=== PATIENT | female | born 1965 | race Hispanic/Latino ===

== ENCOUNTER 2022-04-06 08:37 | Emergency (ER) | payer BC ==
[2022-04-06] MEDS ORDERED: Ketorolac Tromethamine 30 MG/ML VIAL ONE (09:44)
[2022-04-06] MEDS ORDERED: Ondansetron PF 4 MG/2 ML Vial ONE (09:44)
[2022-04-06 09:59] LABS: Hemoglobin 9.9 g/dL (12.0-15.5); Mean Corpuscular HGB CONC 30.8 g/dL (32.0-36.0); Mean Corpuscular Hemoglobin 29.7 pg (27.0-33.0); Mean Corpuscular Volume 96.4 fl (81.6-98.3); Mean Platelet Volume 10.8 fl (7.4-10.4); Platelet Count 194 10x3/uL (150-450); RBC Distribution Width 14.9 % (11.5-14.5); Red Blood Cell (RBC) Count 3.33 10x6/uL (3.90-5.03)
[2022-04-06 10:11] LABS: ALT (SGPT) 24 U/L (8-55); AST (SGOT) 59 U/L (5-34); Albumin 3.5 g/dL (3.5-5.0); Alkaline Phosphatase 62 U/L (40-110); Anion Gap 13 mmol/L (10-20); BUN (Urea Nitrogen) 17 mg/dL (9.8-20.1); Bilirubin, Total 0.4 mg/dL (0.2-1.2); Calc. Creatinine Clearance 0 mL/min (70-130); Carbon Dioxide 20 mmol/L (22-29); Chloride 108 mmol/L (98-107); Estimated GFR 81; Globulin 6.2 g/dL (2.4-3.5); Glucose 98 mg/dL (70-105); Potassium 4.1 mmol/L (3.5-5.1); Protein, Total 9.7 g/dL (6.0-8.3); Sodium 137 mmol/L (136-145)
[2022-04-06] MEDS ORDERED: cefTRIAXone\\ROCEPHIN 1 GM VIAL ONE (10:26)
[2022-04-06] MEDS ORDERED: Azithromycin 250 MG TAB ONE (10:26)
[2022-04-06 10:42] LABS: MDiff Complete? YES
[2022-04-06 11:33] LABS: Lymphocytes 95 % (21-51); Monocytes 3 % (0-10); Neutrophil 2 % (42-75)
== END 2022-04-06 12:02 | disposition home or self-care (01) ==
LOC: CSHERS 08:37
DX: J18.9 Pneumonia, unspecified organism (principal); D72.829 Elevated white blood cell count, unspecified
CPT/HCPCS: 71045; 80053; 84484; 85025; 93005; 96365; 96375; J0696; J1885; J2405

== ENCOUNTER 2022-06-14 04:20 | Emergency (ER) | payer BC | END 2022-06-14 05:07 | disposition home or self-care (01) | LOC: CSHERS 04:20 | DX: M25.562 Pain in left knee (principal) ==